=== PATIENT | male | born 1995 | race Caucasian/White ===

== ENCOUNTER 2019-04-22 17:13 | Emergency (ER) | payer SELFPAY ==
[2019-04-22] MEDS ORDERED: OXYCODONE-ACETAMINOPHEN 5-325 MG TABLET PO ONE (18:51)
--- NOTE | 2019-04-22 18:53 | ER Document Report ---
ED Medical Screen (RME) - General Chief Complaint: Arm Injury Stated Complaint: BITE ON RIGHT FOREARM Time Seen by Provider: 04/22/19 18:42 Mode of Arrival: Ambulatory Information source: Patient Notes: Patient states that he may have been bit by an insect last week. Patient complains of redness and swelling to right forearm. Patient states he took a pocket knife to his arm 4 days ago and attempt to drain what he thought was an abscess. Patient with significant swelling to right forearm and inability to extend his right elbow I have greeted and performed a rapid initial assessment of this patient. A comprehensive ED assessment and evaluation of the patient, analysis of test results and completion of the medical decision making process will be conducted by additional ED providers. Physical Exam - Vital signs Vitals: Temp Pulse Resp BP Pulse Ox 98.6 F 78 17 116/49 L 100 04/22/19 17:34 04/22/19 17:34 04/22/19 17:34 04/22/19 17:34 04/22/19 17:34 - General Notes: Tender swollen area to right forearm worrisome for abscess with cellulitis. Course - Vital Signs Vital signs: Temp Pulse Resp BP Pulse Ox 98.6 F 78 17 116/49 L 100 04/22/19 17:34 04/22/19 17:34 04/22/19 17:34 04/22/19 17:34 04/22/19 17:34
[2019-04-22 19:32] LABS: ABSOLUTE EOSINOPHILS # (AUTO) 0.1 10^3/uL (0.0-0.6); ABSOLUTE LYMPHOCYTES (AUTO) 1.7 10^3/uL (0.5-4.7); ABSOLUTE MONOCYTES (AUTO) 0.6 10^3/uL (0.1-1.4); ABSOLUTE NEUT (AUTO) 8.3 10^3/uL (1.7-8.2); BASOPHILS % (AUTO) 0.4 % (0-2); EOSINOPHILS % (AUTO) 0.9 % (0-6); HEMATOCRIT 40.3 % (37.9-51.0); HEMOGLOBIN 14.1 g/dL (13.5-17.0); MEAN CORPUSCULAR HEMOGLOBIN 30.6 pg (27.0-33.4); MEAN CORPUSCULAR VOLUME 87 fl (80-97); MONOCYTES % (AUTO) 5.6 % (3-13); PLATELET COUNT 218 10^3/uL (150-450); RED BLOOD COUNT 4.62 10^6/uL (4.35-5.55); RED CELL DISTRIBUTION WIDTH 12.3 % (11.5-14.0); SEGMENTED NEUTROPHILS % (AUTO) 77.1 % (42-78); TOTAL CELLS COUNTED % (AUTO) 100 %; WHITE BLOOD COUNT 10.8 10^3/uL (4.0-10.5)
[2019-04-22 19:47] LABS: ANION GAP 11 (5-19); BLOOD UREA NITROGEN 15 mg/dL (7-20); CARBON DIOXIDE 28 mmol/L (22-30); CHLORIDE 101 mmol/L (98-107)
[2019-04-22 19:53] LABS: GLUCOSE 58 mg/dL (75-110)
[2019-04-22] MEDS ORDERED: SULFAMETHOXAZOLE/TRIMETHOPRIM 800-160 MG TABLET PO ONE (20:32)
[2019-04-22] MEDS ORDERED: CEPHALEXIN 500 MG CAPSULE PO ONE (20:32)
[2019-04-22] MEDS ORDERED: KETOROLAC TROMETHAMINE INJ/PF 30 MG/1 ML SDV IV ONE (20:34)
--- NOTE | 2019-04-22 20:36 | ER Document Report ---
ED Extremity Problem, Upper <JEAN YO - Last Filed: 04/23/19 02:12> - General Mode of Arrival: Ambulatory Information source: Patient TRAVEL OUTSIDE OF THE [place] IN LAST 30 DAYS: No - HPI Patient complains to provider of: Right, Forearm Onset: Last week Recent injury: No Quality of pain: Sharp, Throbbing Severity of pain: Moderate Pain Level: 3 Context: Other - abscess Associated symptoms: None Exacerbated by: Movement, Exertion Relieved by: Nothing Similar symptoms previously: No Recently seen / treated by doctor: No <JULIANNE WILLIS - Last Filed: 04/23/19 03:07> - General Chief Complaint: Arm Problem Stated Complaint: BITE ON RIGHT FOREARM Time Seen by Provider: 04/22/19 18:42 Notes: 23-year-old male presented to ED for a large abscess to the right forearm the redness goes up past the elbow. Patient states he had an insect bite on Sunday he developed a head by on Sunday he decided to take a pocket knife and cut it to make it drain. He states it did drain but by Sunday it started getting red by Sunday it was larger and today it is very large and it is painful to extend his arm. Patient states he does not use any IV drugs this was a bug bite that he cut with a pocket knife. He is alert and oriented respirations regular nonlabored speaking in full sentences walks with a even steady gait. 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 Lives with: Family Family History: Reviewed & Not Pertinent Patient has suicidal ideation: No Patient has homicidal ideation: No - Medical History Medical History: Other - Yung to the arm - Past Medical History Cardiac Medical History: Reports: None Pulmonary Medical History: Reports: None EENT Medical History: Reports: None Neurological Medical History: Reports: None Endocrine Medical History: Reports: None Renal/ Medical History: Reports: None Malignancy Medical History: Reports None GI Medical History: Reports: None Musculoskeletal Medical History: Reports None Skin Medical History: Reports None Psychiatric Medical History: Reports: None Traumatic Medical History: Reports: None Infectious Medical History: Reports: None Past Surgical History: Reports: Hx Oral Surgery - [place] teeth <JULIANNE WILLIS - Last Filed: 04/23/19 03:07> Review of Systems - Review of Systems Constitutional: No symptoms reported EENT: No symptoms reported Cardiovascular: No symptoms reported Respiratory: No symptoms reported Gastrointestinal: No symptoms reported Genitourinary: No symptoms reported Male Genitourinary: No symptoms reported Musculoskeletal: No symptoms reported Skin: No symptoms reported Hematologic/Lymphatic: Other - Large abscess to right forearm Neurological/Psychological: No symptoms reported -: Yes All other systems reviewed and negative <JULIANNE WILLIS - Last Filed: 04/23/19 03:07> Physical Exam - Vital signs Interpretation: Normal - General General appearance: Appears well, Alert - HEENT Head: Normocephalic, Atraumatic Eyes: Normal Pupils: PERRL - Respiratory Respiratory status: No respiratory distress Chest status: Nontender Breath sounds: Normal Chest palpation: Normal - Cardiovascular Rhythm: Regular Heart sounds: Normal auscultation Murmur: No - Abdominal Inspection: Normal Distension: No distension Bowel sounds: Normal Tenderness: Nontender Organomegaly: No organomegaly - Back Back: Normal, Nontender - Extremities General upper extremity: Normal color, Normal ROM, Normal temperature General lower extremity: Normal inspection, Nontender, Normal color, Normal ROM, Normal temperature, Normal weight bearing. No: Son's sign Forearm: Tender - Abscess just below the antecubital space with redness that goes above the antecubital space - Neurological Neuro grossly intact: Yes Cognition: Normal Orientation: AAOx4 Priscilla Coma Scale Eye Opening: Spontaneous Priscilla Coma Scale Verbal: Oriented Priscilla Coma Scale Motor: Obeys Commands [place] Coma Scale Total: 15 Speech: Normal Motor strength normal: LUE, RUE, LLE, RLE Sensory: Normal - Psychological Associated symptoms: Normal affect, Normal mood - Skin Skin Temperature: Warm Skin Moisture: Dry Skin Color: Normal Skin irregularity: Abscess Location of irregularity: Extremities - Right forearm large abscess just below the antecubital space with redness going above the elbow Character of irregularity: Erythematous Irregularity with: Swelling, Tenderness, Warmth, Inflammation <JULIANNE WILLIS - Last Filed: 04/23/19 03:07> - Vital signs Vitals: Temp Pulse Resp BP Pulse Ox 98.6 F 78 17 116/49 L 100 04/22/19 17:34 04/22/19 17:34 04/22/19 17:34 04/22/19 17:34 04/22/19 17:34 Course - Laboratory Result Diagrams: 04/22/19 19:17 04/22/19 19:17 <JEAN YO - Last Filed: 04/23/19 02:12> - Laboratory Result Diagrams: 04/22/19 19:17 04/22/19 19:17 <JULIANNE WILLIS - Last Filed: 04/23/19 03:07> - Re-evaluation Re-evalutation: 04/23/19 02:12 I did personally see and examine this patient in conjunction with nurse practitioner Julianne Willis, patient complains of a steadily enlarging abscess with increasing cellulitis to the right forearm, physical examination does show a several centimeter abscess with erythema going 2 to 3 cm up the arm past the antecubital fossa and down the right arm to approximately the level of the wrist., This is tender to palpation and fluctuant, no true restriction in range of motion, able to extend his right arm at the elbow to proximally 170 degrees. No tenderness around the elbow itself. Agree with incision and drainage and use of Bactrim and Keflex. (JEAN YO) 04/22/19 21:[address] Yo for the best way to treat this large abscess to the right forearm. She recommended open to I&D open from the one marked to the other marked it is on the abscess which is about 3/4 cm long then break all locul ations and edge sure that we have removed all the drainage did not treat with Bactrim and Keflex and instruct patient on use of Epson salt. Patient to return to the ED if redness goes above where the redness line is at this time. A skin marker was used to demonstrate where he should return if the redness goes above. Patient was able to verbalize understanding and agreement with treatment plan a nd patient was discharged home with his after he received a dose of Bactrim Keflex, Toradol IV, and her Ortley dispense pack. 04/23/19 03:07 (JULIANNE WILLIS) - Vital Signs Vital signs: Temp Pulse Resp BP Pulse Ox 98.5 F 64 18 116/51 L 100 04/22/19 21:12 04/22/19 21:12 04/22/19 21:12 04/22/19 21:12 04/22/19 21:12 - Laboratory Laboratory results interpreted by me: 04/22/19 04/22/19 19:17 19:17 WBC 10.8 H Absolute Neuts (auto) 8.3 H Creatinine 1.31 H Glucose 58 L Procedures - Incision and Drainage Right Anterior foreArm Time completed: :07 Type: Single Anesthetic type: 1% Lidocaine mL's of anesthetic: 5 Blade size: 11 I&D procedure: Shurclens applied Incision Method: Incision made by scalpel Amount/type of drainage: Large amount of purulent drainage <JULIANNE WILLIS - Last Filed: 04/23/19 03:07> Discharge <JEAN YO - Last Filed: 04/23/19 02:12> <JULIANNE WILLIS - Last Filed: 04/23/19 03:07> - Discharge Clinical Impression: Abscess of right forearm Condition: Stable Disposition: HOME, SELF-CARE Instructions: Family Physicians / Practices Additional Instructions: ABSCESS: You have an abscess (boil). This a pus-forming infection, usually due to staph. Some boils may be left to drain on their own, but most require lancing. From the time the tender lump first appears, it may be three or four days before the abscess is ready to obdulio. Local heat and rest help at this stage of treatment. An antibiotic may prevent spread of the infection. Once the abscess is opened, packing may be placed into it. This is done so pus is not sealed inside by premature closure of the cavity. The packing will be removed at your follow-up visit or you may be advised to remove it yourself at home. Sometimes this packing must be replaced a few times during healing. The wound will heal with surprisingly little scar. Depending on the size and location of an abscess, healing can take one to four weeks. You may shower and wash the area around the incision site two or three times a day. Antibiotics may be prescribed, but are usually not necessary after an abscess has been drained. If you develop fever, chills, worsening pain, or increasing swelling in the area, call the doctor or return immediately. POST INCISION AND DRAINAGE: You have had an incision made to allow drainage of an abscess. The incision must remain open so that pus and debris can drain from the wound. If the abscess cavity is large, packing is placed. This keeps the tissues from collapsing and trapping pus inside, while the body shrinks the cavity. The packing may need to be replaced every day or two. The physician will instruct you on the packing. Keep a bulky dressing over the area. Replace it if it becomes saturated with blood or pus. Do not disturb the packing (if present). You may shower and cleanse the area with gentle soap and warm water two or three times a day. Local warmth may be soothing, and may promote faster healing. Return if you develop high fever or chills, or if you note spreading redness, increasing swelling, or increasing tenderness. MRSA CELLULITIS: You have an infection of your skin and underlying soft tissues called cellulitis. This is due to bacteria, which can enter through any break in the skin, or even through an irritated hair follicle. Untreated, cellulitis will usually worsen and may form an abscess which requires draining. Although many bacterial organisms can cause cellulitis and abscess formations, the most likely bacteria is Methicillin-Resistant Staph Aureus, or MRSA for short. Antibiotics are required. Usually, warm packs or warm soaks, and elevation of the infected area are recommended. You should start getting better within 24 to 36 hours. Most infections respond quickly to the right medication. Follow-up care is important, however, to check for abscess (boil) formation, unsuspected foreign body, or resistant infection. If you develop fever, chills, or if the area of infection is becoming rapidly more swollen or painful, call the doctor at once. ORAL NARCOTIC MEDICATION: You have been given a prescription for pain control. This medication is a narcotic. It's best taken with food, as nausea can result if taken on an empty stomach. Don't operate machinery or drive within six hours of taking this medication. Do not combine this medicine with alcohol, or with any medication which can cause sedation (such as cold tablets or sleeping pills) unless you get permission from the physician. Narcotics tend to cause constipation. If possible, drink plenty of fluids and eat a diet high in fiber and fruits. CEPHALEXIN: The antibiotic you've been prescribed is a member of the cephalosporin class. This type of antibiotic covers a wide variety of infections, including those of the skin, lungs, and urinary tract. It's useful for staph infections. This antibiotic is slightly similar to the penicillin family. In rare cases, a person who is allergic to penicillin will also be allergic to this medication. If you have had a severe allergic reaction to penicillin, and have not taken this antibiotic since that time, notify your doctor. Antibiotics which cover many germs ("broad spectrum" antibiotics) are more likely to cause diarrhea or "yeast" infections. Women prone to vaginal yeast problems may suffer an attack after taking this antibiotic. In infants, oral thrush (white spots "stuck" on the cheek) or yeast diaper rash may result. See your doctor if these problems occur. Call at once if you develop itching, hives, shortness of breath, or lightheadedness. TRIMETHOPRIM-SULFA: You have been given a prescription for trimethoprim-sulfa (TMS, Septra, Bactrim). This is a combination antibiotic of the sulfa class, often used for urinary tract infections, middle ear infections, bronchitis, shigella intestinal infection, and Pneumocystis pneumonia. TMS is usually well-tolerated. Occasional side effects include nausea and decreased appetite. Septra is not recommended for infants less than two months of age. Do not take this medication if you have experienced severe side effects or allergy to sulfa medicine. You should stop this medicine at once and contact your physician if you develop any rash, joint pain, shortness of breath, bruising, or jaundice (yellow color in the skin), or if you develop any other new or unusual symptoms. Epsom Salt Soaks Soak the wound area in a container of warm epsom salt water. If you can't get the wound area into a bucket or sood, use a folded towel soaked in the epsom salt solution and apply to the area. Use clean hot tap water (about the temperature of a very warm bath), mixing in about one (1) teaspoon for every pint of water. Two gallon --> 16 teaspoons Epsom Salts One gallon --> 8 teaspoons Epsom Salts Two quarts --> 4 teaspoons Epsom Salts One quart --> 2 teaspoons Epsom Salts Soak the wound for about 20 minutes while gently moving it around in the water. Repeat this four (4) times a day. Return to the ED if your redness passes the line that I have drawn after 12 hours and have your abscess reassessed. FOLLOW-UP CARE: Most simple abscesses will not require a follow up visit. If you had packing placed in the abscess, remove it as instructed by the physician. If you have been referred to a physician for follow-up care, call the physicians office for an appointment as you were instructed or within the next two days. If you experience worsening or a significant change in your symptoms, return to the Emergency Department at any time for re-evaluation. Prescriptions: Sulfamethoxazole/Trimethoprim [Bactrim Ds Tablet] 1 each PO BID #20 tablet Cephalexin Monohydrate [Keflex 500 mg Capsule] 500 mg PO QID #20 capsule Forms: Return to Work
[2019-04-22] MEDS ORDERED: HYDROCODONE/ACETAMINOPHEN 5-325 MG (6 TAB/ER DISP) PO PRN (20:59)
[2019-04-22 21:16] VITALS: BP 116/51
== END 2019-04-22 21:21 | disposition home or self-care (01) ==
LOC: ER 17:13
DX: L02.413 Cutaneous abscess of right upper limb (principal); L03.113 Cellulitis of right upper limb
CPT/HCPCS: 36415; 87070; 87205; 82962; 85025; 87075; 80048; 10060; J1885; 99283